=== PATIENT | female | born 1960 | race Caucasian/White ===

== ENCOUNTER 2024-05-16 22:57 | Inpatient (IN) | payer OTHER ==
[~2024-05-16] VITALS: Ht 154.9 cm; Wt 65.3 kg
[2024-05-16 23:50] LABS: BASOPHILS # (AUTO) 0.2 K/UL (0.0-0.2); BASOPHILS % (AUTO) 0.9 % (0.0-2.0); EOSINOPHILS # (AUTO) 0.1 K/uL (0.0-0.7); EOSINOPHILS % (AUTO) 0.7 % (0.0-7.0); HEMATOCRIT 31.2 % (31.2-41.9); HEMOGLOBIN 10.1 g/dL (10.9-14.3); LYMPHOCYTES # (AUTO) 0.9 K/uL (0.8-4.8); LYMPHOCYTES % (AUTO) 4.9 % (20.5-51.5); MEAN CORPUSCULAR HEMOGLOBIN 28.5 uug (24.7-32.8); MEAN CORPUSCULAR HGB CONC 32 g/dL (32.3-35.6); MEAN CORPUSCULAR VOLUME 88.4 fL (75.5-95.3); MONOCYTES # (AUTO) 0.7 K/uL (0.1-1.30); MONOCYTES % (AUTO) 3.8 % (0.0-11.0); NEUTROPHILS # (AUTO) 15.7 K/uL (1.8-8.9); NEUTROPHILS % (AUTO) 89.7 % (38.5-71.5); PLATELET COUNT (AUTO) 436 K/uL (179-408); RED BLOOD CELL COUNT(AUTO) 3.53 MIL/uL (3.63-4.92); RED CELL DISTRIBUTION WIDTH 13.8 % (12.3-17.7); WHITE BLOOD COUNT (AUTO) 17.5 K/uL (3.8-11.8)
[2024-05-16 23:54] LABS: DIFFERENTIAL COMMENT 1
[2024-05-16 23:57] LABS: CALCIUM 9.2 mg/dL (8.5-10.1); CARBON DIOXIDE 16 mmol/L (21-32); CHLORIDE 101 mmol/L (98-107); CREATININE 3.3 mg/dL (0.6-1.3); GLUCOSE 245 mg/dL (74-106); POTASSIUM 5.1 mmol/L (3.5-5.1); SODIUM SERUM 132 mmol/L (136-145)
[2024-05-17] LABS: UREA NITROGEN, BLOOD 85 mg/dL (7-18)
[2024-05-17 00:11] LABS: ALANINE AMINOTRANSFERASE 17 U/L (14-59); ALBUMIN 2.8 g/dL (3.4-5.0); ALKALINE PHOSPHATASE 117 U/L (50-136); ASPARTATE AMINOTRANSFERASE 6 U/L (15-37); BILIRUBIN,DIRECT 0.1 mg/dL (0.0-0.2); BILIRUBIN,TOTAL 0.3 mg/dL (0.2-1.0)
[2024-05-17] MEDS ORDERED: CEFEPIME HCL 1 G VIAL ONE ×2 (00:41→06:29)
[2024-05-17] MEDS ORDERED: ACETAMINOPHEN 325 MG TABLET ONE (00:42)
[2024-05-17] MEDS: ACETAMINOPHEN 325 MG TABLET PO ONE (01:00)
[2024-05-17] MEDS: CEFEPIME HCL 2 G in IV DEXTROSE 5% 100 ML IV ONE (01:10)
[2024-05-17] MEDS: IV NS 1000 ML 1,000 ML IV ONE ×2 (01:10→03:15)
[2024-05-17 02:24] LABS: *BILIRUBIN,URIN NEGATIVE (NEGATIVE); *BLOOD, URINE 3+ (NEGATIVE); *COLOR,URINE YELLOW (YELLOW); *KETONES,URINE NEGATIVE (NEGATIVE); *PROTEIN,URINE 2+ (NEGATIVE); *UROBILINOGEN,URINE 0.2 E.U./dl (NORMAL); LEUKOCYTE ESTERASE ,URINE 3+ (NEGATIVE); NITRITE, URINE NEGATIVE (NEGATIVE); UGLUCOSE NEGATIVE (NEGATIVE)
[2024-05-17 02:27] LABS: *CLARITY,URINE CLOUDY (CLEAR)
[2024-05-17 03:03] LABS: BACTERIA,URINE MODERATE /HPF (NONE SEEN); RBC,URINE 20-50 /HPF (0-3); SQUAMOUS EPITHELIAL CELL,UR MODERATE /HPF (NONE SEEN); WBC,URINE 20-50 /HPF (0-3)
[2024-05-17] MEDS ORDERED: GUAI100G PO (03:56)
[2024-05-17] MEDS ORDERED: BENZ-13 PO (03:56)
[2024-05-17] MEDS ORDERED: MAGNESIUM HYDROXIDE 30 ML LIQUID UDC PO PRN (04:15)
[2024-05-17] MEDS ORDERED: ONDANSETRON 4 MG/2 ML VIAL IV PRN (04:15)
[2024-05-17] MEDS: CEFEPIME HCL 1 G in IV DEXTROSE 5% 50 ML IV SCH (06:00)
[2024-05-17 07:38] LABS: CALCIUM 8.4 mg/dL (8.5-10.1); CREATININE 3.3 mg/dL (0.6-1.3); POTASSIUM 4.7 mmol/L (3.5-5.1)
[2024-05-17 07:44] LABS: MAGNESIUM 2.3 mg/dL (1.8-2.4); PHOSPHOROUS 3.5 mg/dL (2.5-4.9)
[2024-05-17 08:00] VITALS: BP 103/48; TEMP 98.2; O2SAT 99
[2024-05-17 10:59] VITALS: BP 101/43; TEMP 98.2; O2SAT 96
[2024-05-17] MEDS ORDERED: FERR-68 PO (11:29)
[2024-05-17] MEDS ORDERED: INSU100V39 SQ (11:29)
[2024-05-17] MEDS ORDERED: INSU100V7 SQ (11:29)
[2024-05-17] MEDS ORDERED: SODI650T PO (11:29)
[2024-05-17] MEDS ORDERED: ATOR20TA PO (11:29)
[2024-05-17] MEDS ORDERED: BUPR-319 PO (11:29)
[2024-05-17] MEDS ORDERED: FENO48TA6 PO (11:29)
[2024-05-17] MEDS ORDERED: MONT10TA22 PO (11:29)
[2024-05-17] MEDS ORDERED: MULT-1119 PO (11:29)
[2024-05-17] MEDS ORDERED: ALBU8HFA4 IN (12:42)
[2024-05-17] MEDS ORDERED: METO-357 PO (12:42)
[2024-05-17] MEDS ORDERED: FAMO20TA8 PO (12:42)
[2024-05-17] MEDS ORDERED: MINE50OI TP (12:42)
[2024-05-17] MEDS ORDERED: OXYB5TAB29 PO (12:42)
[2024-05-17] MEDS ORDERED: ASPI81TA31 PO (12:42)
[2024-05-17] MEDS ORDERED: ERGO500040 PO (12:42)
[2024-05-17] MEDS ORDERED: FLUT1BLS6 IH (12:53)
[2024-05-17] MEDS ORDERED: DICL100G31 TP (12:54)
[2024-05-17 15:04] VITALS: BP 104/45; TEMP 97.6; O2SAT 100
[2024-05-17] MEDS ORDERED: BENZONATATE 100 MG CAPSULE PO PRN (15:15)
[2024-05-17] MEDS ORDERED: DEXTROSE 50% 50 ML DISP.SYRIN IV PRN (15:30)
[2024-05-17] MEDS: IV 1/2NS 1000 ML 1,000 ML IV SCH (15:35)
[2024-05-17] MEDS ORDERED: FAMOTIDINE 20 MG TABLET PO SCH (17:00)
[2024-05-17] MEDS ORDERED: GUAIFENESIN 100 MG PO SCH (17:00)
[2024-05-17] MEDS: FERROUS SULFATE 325 MG TABEC PO SCH (17:25)
[2024-05-17] MEDS: ASPIRIN 81 MG TAB.CHEW PO SCH (17:25)
[2024-05-17] MEDS: ATORVASTATIN 20 MG TABLET PO SCH (17:25)
[2024-05-17] MEDS: BLOOD SUGAR DIAGNOSTIC 1 EACH STRIP VI SCH (17:25)
[2024-05-17] MEDS: INSULIN REGULAR, HUMAN 300 UNIT/3 ML VIAL SQ PRN (17:26)
[2024-05-17] MEDS: buPROPion XL 150 MG TAB.SR.24H PO SCH (17:31)
[2024-05-17] MEDS: FAMOTIDINE 20 MG TABLET PO ONE (18:04)
[2024-05-17] MEDS: OXYBUTYNIN XL 5 MG TABSR PO SCH (18:04)
[2024-05-17] MEDS: ACETAMINOPHEN 325 MG TABLET PO PRN (20:26)
[2024-05-17] MEDS: DOCUSATE SODIUM 100 MG CAPSULE PO SCH (20:26)
[2024-05-17] MEDS: INSULIN GLARGINE,HUM 300 UNITS/3 ML CARTRIDGE SQ SCH (20:31)
[2024-05-17] MEDS: INSULIN REGULAR, HUMAN 300 UNITS/3 ML VIAL SQ PRN (20:33)
[2024-05-17] MEDS ORDERED: FENOFIBRATE NANOCRYSTALLIZED 48 MG TABLET PO SCH ×2 (21:00)
[2024-05-17 21:19] VITALS: BP 125/42; TEMP 98.8; O2SAT 98
[2024-05-18] VITALS (11 sets, daily range): BP systolic 104–139; BP diastolic 45–66; TEMP 97.5–98.6; O2SAT 95–100
[2024-05-18] MEDS: GUAIFENESIN SUGAR FREE 100 MG/5 ML UDC PO PRN (03:10)
[2024-05-18] MEDS: CEFEPIME HCL 1 G in IV DEXTROSE 5% 50 ML IV SCH (05:35)
[2024-05-18 06:55] LABS: BASOPHILS # (AUTO) 0.1 K/UL (0.0-0.2); BASOPHILS % (AUTO) 1.4 % (0.0-2.0); EOSINOPHILS # (AUTO) 0.2 K/uL (0.0-0.7); HEMATOCRIT 27.6 % (31.2-41.9); HEMOGLOBIN 8.9 g/dL (10.9-14.3); LYMPHOCYTES # (AUTO) 0.9 K/uL (0.8-4.8); LYMPHOCYTES % (AUTO) 10.1 % (20.5-51.5); MEAN CORPUSCULAR HEMOGLOBIN 29.1 uug (24.7-32.8); MEAN CORPUSCULAR HGB CONC 32 g/dL (32.3-35.6); MEAN CORPUSCULAR VOLUME 90.1 fL (75.5-95.3); MONOCYTES # (AUTO) 0.6 K/uL (0.1-1.30); MONOCYTES % (AUTO) 6.1 % (0.0-11.0); NEUTROPHILS # (AUTO) 7.4 K/uL (1.8-8.9); NEUTROPHILS % (AUTO) 80.4 % (38.5-71.5); PLATELET COUNT (AUTO) 318 K/uL (179-408); RED BLOOD CELL COUNT(AUTO) 3.07 MIL/uL (3.63-4.92); RED CELL DISTRIBUTION WIDTH 14.5 % (12.3-17.7); WHITE BLOOD COUNT (AUTO) 9.2 K/uL (3.8-11.8)
[2024-05-18 07:03] LABS: CALCIUM 8.7 mg/dL (8.5-10.1); DIFFERENTIAL COMMENT 1; MAGNESIUM 2.2 mg/dL (1.8-2.4); PHOSPHOROUS 3.4 mg/dL (2.5-4.9); POTASSIUM 4.7 mmol/L (3.5-5.1)
[2024-05-18] MEDS ORDERED: Medication Not On Formulary EA (Multivitamin (Multi Vitamin Daily) 1 TAB) PO SCH (09:00)
[2024-05-18] MEDS ORDERED: Medication Not On Formulary EA (Bupropion Hcl (Bupropion Xl) 1 TAB) PO SCH (09:00)
[2024-05-18] MEDS ORDERED: GABA-536 PO (09:01)
[2024-05-18] MEDS: FAMOTIDINE 10 MG TABLET PO SCH (09:23)
[2024-05-18] MEDS: MULTIVITAMINS,THERAPEUTIC TABLET PO SCH (09:23)
[2024-05-18] MEDS: GABAPENTIN 400 MG CAPSULE PO SCH (09:23)
[2024-05-18] MEDS: METOPROLOL SUCCINATE XL 50 MG TAB.SR.24H PO SCH (09:24)
[2024-05-18] MEDS: IV 1/2NS 1000 ML 1,000 ML IV PRN (11:51)
[2024-05-18] MEDS: ALBUTEROL SULFATE 2.5 MG/3 ML NEBU NEB SCH (13:24)
[2024-05-18] MEDS ORDERED: GABAPENTIN 400 MG CAPSULE PO SCH (17:00)
[2024-05-18] MEDS: MONTELUKAST SODIUM 10 MG TABLET PO SCH (17:08)
[2024-05-18] MEDS ORDERED: UMECLIDINIUM INH SCH (18:00)
[2024-05-18] MEDS ORDERED: [UNRECOGNIZED DRUG - OTHER] INH SCH (18:00)
[2024-05-18] MEDS ORDERED: FLUTICASONE FUROATE INH SCH (18:00)
[2024-05-18] MEDS ORDERED: VILANTEROL INH SCH (18:00)
[2024-05-18] MEDS: VILANTEROL INH SCH (20:35)
[2024-05-18] MEDS: FLUTICASONE FUROATE INH SCH (20:35)
[2024-05-18] MEDS: [UNRECOGNIZED DRUG - OTHER] INH SCH (20:35)
[2024-05-18] MEDS: UMECLIDINIUM INH SCH (20:35)
[2024-05-18] MEDS: INSULIN GLARGINE,HUM 300 UNITS/3 ML CARTRIDGE SQ SCH (20:37)
[2024-05-18] MEDS ORDERED: INSULIN GLARGINE,HUM 300 UNITS/3 ML CARTRIDGE SQ SCH (21:00)
[2024-05-19] VITALS (11 sets, daily range): BP systolic 110–139; BP diastolic 49–62; TEMP 97.7–98.6; O2SAT 95–100
[2024-05-19 07:23] LABS: BASOPHILS % (AUTO) 0.6 % (0.0-2.0); EOSINOPHILS # (AUTO) 0.2 K/uL (0.0-0.7); EOSINOPHILS % (AUTO) 2.3 % (0.0-7.0); HEMATOCRIT 28.8 % (31.2-41.9); HEMOGLOBIN 9.5 g/dL (10.9-14.3); LYMPHOCYTES # (AUTO) 1.5 K/uL (0.8-4.8); LYMPHOCYTES % (AUTO) 19.5 % (20.5-51.5); MEAN CORPUSCULAR HEMOGLOBIN 29.2 uug (24.7-32.8); MEAN CORPUSCULAR HGB CONC 33 g/dL (32.3-35.6); MEAN CORPUSCULAR VOLUME 88.8 fL (75.5-95.3); MONOCYTES # (AUTO) 0.7 K/uL (0.1-1.30); MONOCYTES % (AUTO) 9.4 % (0.0-11.0); NEUTROPHILS # (AUTO) 5.3 K/uL (1.8-8.9); NEUTROPHILS % (AUTO) 68.2 % (38.5-71.5); PLATELET COUNT (AUTO) 317 K/uL (179-408); RED BLOOD CELL COUNT(AUTO) 3.25 MIL/uL (3.63-4.92); RED CELL DISTRIBUTION WIDTH 14.1 % (12.3-17.7); WHITE BLOOD COUNT (AUTO) 7.8 K/uL (3.8-11.8)
[2024-05-19 07:34] LABS: CALCIUM 9.7 mg/dL (8.5-10.1); CREATININE 2.4 mg/dL (0.6-1.3); POTASSIUM 4.4 mmol/L (3.5-5.1)
[2024-05-19 07:38] LABS: DIFFERENTIAL COMMENT 1
[2024-05-19] MEDS: ERGOCALCIFEROL 50,000 UNIT CAPSULE PO SCH (08:43)
[2024-05-19] MEDS ORDERED: [UNRECOGNIZED DRUG - OTHER] PO SCH (12:29)
[2024-05-19] MEDS ORDERED: VITAMIN D PO SCH (12:29)
[2024-05-20] VITALS (11 sets, daily range): BP systolic 107–138; BP diastolic 54–62; TEMP 97.7–98.5; O2SAT 96–100
[2024-05-20 07:11] LABS: BASOPHILS # (AUTO) 0.1 K/UL (0.0-0.2); BASOPHILS % (AUTO) 0.8 % (0.0-2.0); EOSINOPHILS # (AUTO) 0.2 K/uL (0.0-0.7); EOSINOPHILS % (AUTO) 2.6 % (0.0-7.0); HEMATOCRIT 27.3 % (31.2-41.9); HEMOGLOBIN 9.2 g/dL (10.9-14.3); LYMPHOCYTES # (AUTO) 1.4 K/uL (0.8-4.8); MEAN CORPUSCULAR HGB CONC 34 g/dL (32.3-35.6); MEAN CORPUSCULAR VOLUME 88.6 fL (75.5-95.3); MONOCYTES # (AUTO) 0.7 K/uL (0.1-1.30); MONOCYTES % (AUTO) 8.1 % (0.0-11.0); NEUTROPHILS # (AUTO) 5.8 K/uL (1.8-8.9); NEUTROPHILS % (AUTO) 71.5 % (38.5-71.5); PLATELET COUNT (AUTO) 281 K/uL (179-408); RED BLOOD CELL COUNT(AUTO) 3.08 MIL/uL (3.63-4.92); RED CELL DISTRIBUTION WIDTH 14.3 % (12.3-17.7); WHITE BLOOD COUNT (AUTO) 8.1 K/uL (3.8-11.8)
[2024-05-20 07:24] LABS: CALCIUM 8.8 mg/dL (8.5-10.1); CREATININE 2.4 mg/dL (0.6-1.3); MAGNESIUM 2.1 mg/dL (1.8-2.4); PHOSPHOROUS 3.4 mg/dL (2.5-4.9); POTASSIUM 4.5 mmol/L (3.5-5.1)
[2024-05-20 07:38] LABS: DIFFERENTIAL COMMENT 1
[2024-05-21] VITALS (8 sets, daily range): BP systolic 117–127; BP diastolic 54–80; TEMP 97.7–98.4; O2SAT 96–99
[2024-05-21 07:01] LABS: CALCIUM 8.9 mg/dL (8.5-10.1); CREATININE 2.4 mg/dL (0.6-1.3); MAGNESIUM 2.1 mg/dL (1.8-2.4); PHOSPHOROUS 3.5 mg/dL (2.5-4.9); POTASSIUM 4.7 mmol/L (3.5-5.1)
[2024-05-21 07:02] LABS: BASOPHILS # (AUTO) 0.1 K/UL (0.0-0.2); BASOPHILS % (AUTO) 0.8 % (0.0-2.0); EOSINOPHILS # (AUTO) 0.3 K/uL (0.0-0.7); EOSINOPHILS % (AUTO) 3.3 % (0.0-7.0); HEMATOCRIT 26.8 % (31.2-41.9); LYMPHOCYTES # (AUTO) 1.8 K/uL (0.8-4.8); LYMPHOCYTES % (AUTO) 19.8 % (20.5-51.5); MEAN CORPUSCULAR HEMOGLOBIN 29.8 uug (24.7-32.8); MEAN CORPUSCULAR HGB CONC 34 g/dL (32.3-35.6); MEAN CORPUSCULAR VOLUME 88.9 fL (75.5-95.3); MONOCYTES # (AUTO) 0.7 K/uL (0.1-1.30); MONOCYTES % (AUTO) 7.7 % (0.0-11.0); NEUTROPHILS # (AUTO) 6.1 K/uL (1.8-8.9); NEUTROPHILS % (AUTO) 68.4 % (38.5-71.5); PLATELET COUNT (AUTO) 285 K/uL (179-408); RED BLOOD CELL COUNT(AUTO) 3.01 MIL/uL (3.63-4.92); RED CELL DISTRIBUTION WIDTH 14.4 % (12.3-17.7); WHITE BLOOD COUNT (AUTO) 8.9 K/uL (3.8-11.8)
[2024-05-21 07:10] LABS: DIFFERENTIAL COMMENT 1
[2024-05-21] MEDS ORDERED: LEVO500T90 PO (13:40)
== END 2024-05-21 15:30 | disposition home or self-care (01) | DRG 720 ==
LOC: ER 23:10 → TELE3 05-17 04:10
PROVIDERS: ATTEND Student in an Organized Health Care Education/Training Program
PROC: 05HC33Z Insertion of Infusion Device into Left Basilic Vein, Percutaneous Approach (ICD-10-PCS; principal; 2024-05-17)
DX: A41.9 Sepsis, unspecified organism (principal); N17.0 Acute kidney failure with tubular necrosis; E44.0 Moderate protein-calorie malnutrition; N12 Tubulo-interstitial nephritis, not specified as acute or chronic; Z87.442 Personal history of urinary calculi; E11.22 Type 2 diabetes mellitus with diabetic chronic kidney disease; E78.5 Hyperlipidemia, unspecified; E11.65 Type 2 diabetes mellitus with hyperglycemia; E87.1 Hypo-osmolality and hyponatremia; K80.20 Calculus of gallbladder without cholecystitis without obstruction; N18.4 Chronic kidney disease, stage 4 (severe); N26.1 Atrophy of kidney (terminal); Z87.440 Personal history of urinary (tract) infections; Z79.4 Long term (current) use of insulin; R65.20 Severe sepsis without septic shock
CPT/HCPCS: 36415; 71045; 76770; 83605; 83735; 84100; 84484; 85025; 85730; 87040; 93005; 93307; 94640; A4606; A4663; G0378; J0692; J1815; J7040